=== PATIENT | female | born 1960 | race Caucasian/White ===

== ENCOUNTER 2020-12-31 10:00 | Emergency (ER) | payer OTHER, SELFPAY ==
--- NOTE | ~2020-12-31 | XR_ITS ---
EXAMINATION: XR SHOULDER, RIGHT CLINICAL INFORMATION: Pain COMPARISON: None TECHNIQUE: Three views of the right shoulder. FINDINGS: There is no evidence of acute fracture or dislocation of the right shoulder. There is prominent calcific tendinitis present. Glenohumeral joint space maintained with minimal spurring. Mild spurring about the acromioclavicular joint is noted. No widening of the coracoclavicular space. XR/XR shoulder RT min 2V IMPRESSION: Prominent calcific tendinitis of the right shoulder.
[2020-12-31 10:49] VITALS: BP 136/59; PULSE 75; RESP 16; TEMP 36.7; O2SAT 98; BMI 39.6
--- NOTE | 2020-12-31 10:50 | ED.GENADULT ---
HPI - General Adult General Chief complaint: Extremity Injury, Upper Stated complaint: rt arm pain Time Seen by Provider: 12/31/20 10:47 Source: patient Limitations: no limitations History of Present Illness HPI narrative: Patient presents to the ER with atraumatic right shoulder pain pain increases with range of motion or palpation. Patient denies any injury to that shoulder or similar episodes in the past. Patient describes the pain as achy that increases she raises that shoulder or palpates the lateral aspect of that shoulder. Patient is tearful at this time. Patient has no other complaints at this time. Patient also has some associated nausea with the pain response. Took a Motrin this morning without any relief. Related Data Previous Rx's Medication Instructions Recorded naproxen 500 mg tablet (Naprosyn) 500 mg PO BID PRN #30 tab 12/31/20 tramadol 50 mg tablet 50 mg PO Q8H PRN #14 tab 12/31/20 Allergies Allergy/AdvReac Type Severity Reaction Status Date / Time pentazocine [From Katelin] Allergy Unknown Verified 12/31/20 10:48 Review of Systems Constitutional: Constitutional: Denies chills, Denies fever(s) and Reports headache(s) ENT: Reports headache(s), Denies nasal congestion and Denies sore throat Cardiovascular: Cardiovascular: Denies chest pain and Denies dyspnea Respiratory: Respiratory: Denies cough and Denies dyspnea Gastrointestinal: Gastrointestinal: Reports nausea and Denies vomiting Musculoskeletal: Musculoskeletal: Reports as per HPI, Denies back pain and Reports arthralgias Comments: Diffuse right shoulder pain Integumentary/Breasts: Skin/Breast: Denies change in pigmentation and Denies rash Neurologic: Reports headache(s) and Denies paresthesias Hematologic/Lymphatic: Hematologic/Lymphatic: Denies easy bruising PMFSH Past Medical History Attestation statement: The following information was validated with the patient. Social History Social History Advance Directives: No Advance Directives Information Provided: No Patient : No Physical Exam Vital Signs: Vital Signs: Last Vital Signs Temp 98.0 F 12/31/20 10:49 Pulse 75 12/31/20 10:49 Resp 16 12/31/20 10:49 BP 136/59 L 12/31/20 10:49 Pulse Ox 98 12/31/20 10:49 Body Mass Index 39.6 vital signs have been reviewed as normal and appeared to be correct. Blood pressure normal. Heart rate normal. Respiration rate normal. Temperature normal. Oxygen saturation normal. Appearance: Alert. Oriented X3. No acute distress. Head: Normal external exam. Normocephalic. Atraumatic. Eyes: PERRLA. EOMI. ENT: Pharynx normal. Uvula midline. Moist mucous membranes. Neck: Soft full range of motion, no JVD CVS: Heart regular rate and rhythm no murmurs and rubs Respiratory: Breath sounds are clear to auscultation bilaterally. No accessory muscle use noted. Back: Full range of motion noted. Skin: Skin warm and dry. No ecchymosis noted Extremities: Right shoulder diffusely tenderness decreased range of motion secondary to pain no crepitus. Unable to assess can test. Neuro: Oriented X 3. No motor deficit. No sensory deficit. Reflexes normal. Course Course Course Narrative: Right shoulder calcified tendinitis Right shoulder strain Rotator cuff injury Muscle spasm Symptoms consistent with muscle skeletal pain 1 Percocet p.o. 5 mg Valium p.o. right shoulder x-ray pending. Symptoms shows obvious calcified tendinitis will place patient in sling follow-up with orthopedics. Medical Decision Making Imaging Data shoulder: Radiologist's impression: [address] [address] XRay Report Signed Patient: Carolyn Kan MR#: [id number] : 1960 Acct:[id number] Age/Sex: 60 / F ADM Date: 12/31/20 Loc: .ED Attending Dr: Ordering Physician: Sebastien Arzola Date of Service: 12/31/20 Procedure(s): XR shoulder RT min 2V Accession Number(s): [id number] cc: Sebastien Arzola ~ EXAMINATION: XR SHOULDER, RIGHT CLINICAL INFORMATION: Pain? COMPARISON: None? TECHNIQUE: Three views of the right shoulder. FINDINGS: There is no evidence of acute fracture or dislocation of the right shoulder. There is prominent calcific tendinitis present. Glenohumeral joint space maintained with minimal spurring. Mild spurring about the acromioclavicular joint is noted. No widening of the coracoclavicular space.? XR/XR shoulder RT min 2V IMPRESSION: Prominent calcific tendinitis of the right shoulder. Dictated By: Florencio Hammond MD Signed By: <Electronically signed by Florencio Hammond MD in OV> 12/31/20 1110 DD/ 1050 TD/TT:? Application Programmer Analyst: Discharge Plan Discharge Clinical Impression: Calcifying tendinitis of shoulder, Right shoulder tendinitis Patient Disposition: Home, Self-Care Instructions: Calcific Tendinitis (ED) Additional Instructions: X-ray shows obvious signs of calcified tendinitis Follow-up with orthopedics as needed Rest ice elevation medication as directed Prescriptions: New naproxen [Naprosyn] 500 mg tablet 500 mg PO BID PRN (Reason: pain) Qty: 30 RF: 0 tramadol 50 mg tablet 50 mg PO Q8H PRN (Reason: severe pain (scale score 7-10)) Qty: 14 RF: 0 Referrals: Jay Ortega MD [Physician] - 2 days
[2020-12-31] MEDS: diazePAM 5 MG TABLET PO (11:06)
[2020-12-31] MEDS: oxyCODONE HCl Immed Release 5 MG TABLET PO (11:06)
== END 2020-12-31 11:43 | disposition home or self-care (01) ==
PROVIDERS: Emergency Provider Emergency Medicine; PCP Internal Medicine
DX: M75.31 Calcific tendinitis of right shoulder (principal); M79.601 Pain in right arm
CPT/HCPCS: 73030; 99283

== ENCOUNTER 2021-01-09 13:51 | Outpatient (REF) | payer OTHER, SELFPAY ==
[2021-01-09 15:30] LABS: MANUAL DIFF FLAG NO
[2021-01-09 15:31] LABS: Basophils Percent Auto 0.5 % (0-2); Eosinophils Absolute Auto 0.1 X10*3/uL (0.0-0.4); Eosinophils Percent Auto 1.8 % (0-4); Hematocrit 36.1 % (37-47); Hemoglobin 11.8 g/dl (12.0-16.0); Imm Gran Abs Auto 0.03 X10*3/uL (0.00-0.03); Imm Gran Pct Auto 0.5 % (0.0-0.4); Lymphocytes Absolute Auto 2.9 X10*3/uL (1.2-4.9); Lymphocytes Percent Auto 43.5 % (20-40); Mean Corpuscular HGB Conc 32.7 g/dl (31.0-35.0); Mean Corpuscular Hemoglobin 30.7 pg (27.0-33.0); Mean Platelet Volume 8.9 fL (9.4-12.3); Monocytes Absolute Auto 0.3 X10*3/uL (0.1-1.2); Neutrophils Absolute Auto 3.2 X10*3/uL (2.0-8.3); Neutrophils Percent Auto 48.7 % (45-73); Platelet Count 299 X10*3/uL (160-400); Red Blood Count 3.84 X10*6/uL (4.20-5.50); Red Cell Distribution Width 13.2 % (11.0-16.0); White Blood Count 6.6 X10*3/uL (4.8-10.8)
[2021-01-09 15:44] LABS: Estimated Average Glucose 97 mg/dL
[2021-01-09 15:52] LABS: Alanine Aminotransferase 20 U/L (0-31); Alkaline Phosphatase 48 U/L (39-117); Anion Gap 10 (12-20); Aspartate Amino Transferase 13 U/L (5-31); Bilirubin Total 0.4 mg/dL (0.0-1.0); Blood Urea Nitrogen 23 mg/dL (9-16); Calcium 9.7 mg/dL (8.4-10.2); Carbon Dioxide 28 mmol/L (22-29); Chloride 111 mmol/L (96-108); Cholesterol 169 mg/dL; Estimated Glomerular Filt Rate > 60; Glucose Random 100 mg/dL (60-115); HDL Cholesterol 57 mg/dL; LDL Cholesterol Calculated 101 mg/dl; Potassium 4.8 mmol/L (3.3-5.1); Sodium 144 mmol/L (135-145); Total Protein 6.3 g/dL (6.5-8.0); Triglycerides 58 mg/dL
[2021-01-09 16:11] LABS: TSH reflex Free T4 0.74 uIU/mL (0.32-4.0)
== END 2021-01-09 13:52 | disposition home or self-care (01) ==
LOC: HO.LAB 13:51
PROVIDERS: Absent Provider Internal Medicine; PCP Internal Medicine; Visit Provider Physician Assistant
DX: Z00.01 Encounter for general adult medical examination with abnormal findings (principal); M75.31 Calcific tendinitis of right shoulder
CPT/HCPCS: 20610; 36415; 80053; 80061; 83036; 84443; 85025; J1040

== ENCOUNTER → 2021-02-24 13:14 | Outpatient (BNVA) | payer OTHER, SELFPAY | PROVIDERS: PCP Internal Medicine; Visit Provider Physician Assistant ==

== ENCOUNTER → 2021-04-20 10:56 | Outpatient (BNVA) | payer OTHER, SELFPAY | PROVIDERS: PCP Internal Medicine; Visit Provider Anesthesiology ==

== ENCOUNTER 2022-07-06 09:34 | Emergency (ER) | payer OTHER, SELFPAY ==
--- NOTE | ~2022-07-06 | CT_ITS ---
EXAMINATION: CT ABDOMEN AND PELVIS WITHOUT CONTRAST CLINICAL INFORMATION: Right flank pain COMPARISON: None TECHNIQUE: Multidetector volumetric imaging was performed from the superior aspect of the liver through the pubic symphysis. Sagittal and coronal reformatted images were obtained on the technologist's workstation. This CT examination was performed using dose optimization techniques as appropriate, variously including the following: *Automated exposure control *Adjustment of mA and/or kV according to patient size (this includes techniques or standardized protocols for targeted exams where dose is matched to indication/reason for exam; i.e. extremities or head) *Use of iterative reconstruction technique DLP: 882 mGy-cm FINDINGS: LUNG BASES: Linear right basilar atelectasis. Normal heart size. LIVER, GALLBLADDER, AND BILIARY TREE: The liver is normal in size, shape, and attenuation. Simple cyst noted at the dome of the left lobe of the liver. No solid hepatic lesion or biliary ductal dilatation is present. Stones are seen within the gallbladder lumen. No wall thickening or adjacent inflammation. PANCREAS: Unremarkable. SPLEEN: Unremarkable. ADRENAL GLANDS: Unremarkable. KIDNEYS AND URETERS: The kidneys are normal in size, shape, and attenuation. Duplicated right collecting system. The ureters meet at the level of the mid ureter. Mild right hydroureteronephrosis involving both moieties. There is a distal ureteral calculus which measures 0.4 cm. This is approximately 1 cm proximal to the ureterovesicular junction. No additional calculi. BLADDER: Unremarkable. GASTROINTESTINAL TRACT: Small hiatal hernia. Normal caliber small bowel. No obstruction. No colonic wall thickening or acute inflammation. Scattered diverticulosis without diverticulitis. No free air or free fluid. The appendix is not seen. ABDOMINAL WALL: No significant hernia is appreciated. LYMPH NODES: Normal. VASCULAR: Normal caliber aorta with mild atherosclerotic calcification. PELVIC VISCERA: The uterus and adnexa are unremarkable. OSSEOUS STRUCTURES: No acute or suspicious osseous abnormality. Mild degenerative change throughout the spine and of the hips. CT/CT abdomen pelvis wo IV con IMPRESSION: 1. Mild right hydroureteronephrosis with a 0.4 cm distal ureteral obstructing calculus. Duplicated right collecting system. 2. Cholelithiasis. Fleischner guidelines were followed.
[2022-07-06 10:15] VITALS: BP 141/76; PULSE 55; RESP 16; TEMP 36.1; O2SAT 100; BMI 41.4
--- NOTE | 2022-07-06 10:47 | ED_ITS ---
HPI - Abdominal Pain General Chief Complaint: Back Pain/Injury Stated Complaint: Kidney stone Time Seen by Provider: 07/06/22 10:35 Source: patient Mode of arrival: ambulatory Limitations: no limitations History of Present Illness HPI narrative: 61 yo female with PMH of kidney stones, chronic pain, obesity - has not had a kidney stone in 30+ years presents with R flank pain this AM with n/v. Pain is radiating down and severe. She states it feels like a kidney stone. MD elicited complaint: flank pain Pertinent past history: kidney stones Onset (ago): hour(s) (few) Pain Consistency: constant Location: R flank Severity: severe Quality: stabbing Radiation: RLQ Migration to: no migration Exacerbating factors: nothing Relieving factors: nothing Associated symptoms: nausea and vomiting Related Data Home Medications Medication Instructions Recorded Confirmed meloxicam 15 mg tablet 15 mg PO DAILY 04/20/21 naltrexone 8 mg-bupropion 90 mg 2 tab PO BID 04/20/21 tablet,extended release (Contrave) topiramate 50 mg tablet 50 mg PO BID 04/20/21 Previous Rx's Medication Instructions Recorded naproxen 500 mg tablet (Naprosyn) 500 mg PO BID PRN pain #30 tabs 12/31/20 tramadol 50 mg tablet 50 mg PO Q8H PRN severe pain 12/31/20 (scale score 7-10) #14 tabs morphine 15 mg immediate release 15 mg PO TID PRN pain #12 tabs 07/06/22 tablet ondansetron 4 mg disintegrating 4 mg PO Q8H PRN nausea and 07/06/22 tablet vomiting #20 tabs tamsulosin 0.4 mg capsule 0.4 mg PO DAILY 7 days #7 caps 07/06/22 Allergies Allergy/AdvReac Type Severity Reaction Status Date / Time pentazocine [From Katelin] Allergy Unknown Verified 12/31/20 10:48 Review of Systems Review of Systems Constitutional : No Weight loss, No Fever, No Chills ENT/Mouth : No sore throat, No Rhinorrhea Eyes: No Swelling, No Redness Cardiovascular : No Chest Pain, No SOB, NoEdema Respiratory : No Cough, No Sputum, No Wheezing Gastrointestinal : Positive Nausea, Positive Vomiting, no Diarrhea, positive abdominal Pain, No Hematochezia, No Melena Genitourinary : No Dysuria, No Urinary Frequency, No Hematuria, No Urgency Musculoskeletal : No joint pain, No Myalgias, No Joint Swelling Skin : No Skin Lesions, No rash Neuro : No Weakness, No Numbness, No Dizziness, No Headache Psych : No Anxiety/Panic, No Depression Heme/Lymph: No Bruising, No Lymphadenopathy Endocrine : No Polyuria, No Polydipsia All other systems reviewed and are negative. [facility] Past Medical History Attestation statement: The following information was validated with the patient. Medical History Chronic pain syndrome Facet arthropathy, lumbar Morbid obesity Spondylosis of lumbar spine Social History Social History Alcohol intake: never Patient Tobacco Use Status: Tobacco use Unknown Smoked in Last 30 Days: No Use of substances other than those prescribed or required for medical reasons: Yes Substance Use Type: Marijuana Substance Use Frequency: Weekly Any prior treatment program specific to substance use: No Advance Directives: No Advance Directives Information Provided: Yes Patient : No Physical Exam ED Vital Signs: Vital Signs - 24 hr 07/06/22 10:15 07/06/22 11:02 07/06/22 14:52 Temperature 97 F 98.3 F Pulse Rate 55 50 55 Respiratory Rate 16 18 16 Blood Pressure 141/76 H 134/62 119/55 L Pulse Oximetry 100 100 100 Oxygen Delivery Method Room Air Room Air Room Air BMI result Body Mass Index 41.4 Appearance: Alert. Oriented X3. No acute distress. Eyes: Pupils equal, round and reactive to light. ENT: Pharynx normal. Neck: Normal inspection. Neck supple. CVS: Normal heart rate and rhythm. Pulses normal. Respiratory: No respiratory distress. Breath sounds normal. Abdomen: Soft and nontender. Back: mild R sided CVA ttp Skin: Skin warm and dry. Normal skin color. Normal skin turgor. Extremities: No lower extremity edema. No calf ttp Neuro: Oriented X 3. No motor deficit. No sensory deficit. Course Course Course Narrative: pain well controlled waiting on urine to DC no UTI stable for DC Medical Decision Making Medical Decision Making MDM Narrative: 61 yo female with PMH of kidney stones, chronic pain, obesity here with R flank pain concerning for renal colic - at this time will need labs, UA, IVF, IV toradol and morphine for pain, CT scan for renal colic and UA to evaluate for infection. Dispo per results and findings. Differential Diagnosis Differential Diagnoses: The differential diagnosis associated with the presentation includes UTI, renal colic Lab Data MDM Lab Attestation statement: I reviewed the patient's lab results. 07/06/22 11:02 07/06/22 11:02 Labs: Lab Results 07/06/22 07/06/22 07/06/22 Range/Units 11:02 11:02 14:12 WBC 7.9 (4.8-10.8) X10*3/uL RBC 3.98 L (4.20-5.50) X10*6/uL Hgb 12.1 (12.0-16.0) g/dl Hct 37.3 (37.0-47.0) % MCV 93.7 (80.0-98.0) fL MCH 30.4 (27.0-33.0) pg MCHC 32.4 (31.0-35.0) g/dl RDW 13.7 (11.0-16.0) % Plt Count 249 (160-400) X10*3/uL MPV 8.4 L (9.4-12.3) fL Immature Gran % (Auto) 0.4 (0.0-0.4) % Neut % (Auto) 70.7 (45-73) % Lymph % (Auto) 23.3 (20-40) % [place] % (Auto) 4.4 (2-11) % Eos % (Auto) 0.6 (0-4) % Baso % (Auto) 0.6 (0-2) % Lymph # (Auto) 1.8 (1.2-4.9) X10*3/uL [place] # (Auto) 0.4 (0.1-1.2) X10*3/uL Eos # (Auto) 0.1 (0.0-0.4) X10*3/uL Baso # (Auto) 0.1 (0.0-0.2) X10*3/uL Abs Immat Gran (auto) 0.03 (0.00-0.03) X10*3/uL Absolute Neuts (auto) 5.6 (2.0-8.3) x10*3/uL Absolute Nucleated RBC 0.000 (0.0-0.012) X10*3/uL Nucleated RBC % (auto) 0.0 (0.0-0.2) /100WBC Sodium 142 (135-145) mmol/L Potassium 4.1 (3.3-5.1) mmol/L Chloride 110 H (96-108) mmol/L Carbon Dioxide 24 (22-29) mmol/L Anion Gap 12 (12-20) BUN 16 (9-16) mg/dL Creatinine 0.84 (0.5-1.4) mg/dL Estim Creat Clear Calc 82.0 Estimated GFR > 60 Random Glucose 101 (60-115) mg/dL Calcium 8.7 D (8.4-10.2) mg/dL Urine Color Yellow Urine Appearance Clear Urine pH 6.5 (5.0-9.0) Ur Specific [place] 1.010 (1.005-1.025) Urine Protein Negative (Neg-Trace) mg/dL Urine Glucose (UA) Negative (Negative) mg/dL Urine Ketones Trace (Negative) mg/dL Urine Blood Moderate (2+) H (Negative) Urine Nitrite Negative (Negative) Ur Leukocyte Esterase Negative (Negative) Urine RBC 11-20 H (0-2) /HPF Urine WBC 0-5 (0-5) /HPF Ur Squamous Epith Cells 3-5 (0-2) /HPF Urine Bacteria None Seen (None Seen) Hyaline Casts 0-2 (0-2) /LPF Independent Interpretation I performed an independent interpretation of an: CT Scan Radiology Impression Discussion of test interpretation with radiology: I have reviewed the radiologist's reading. External Record Review External record reviewed: Inpatient record and Outpatient record Prescription Management I considered prescription management with: Pain Medication and Other Medications Administered Discontinued Medications Generic Name Dose Route Start Last Admin Trade Name Freq PRN Reason Stop Dose Admin Lactated Ringer's 1,000 mls @ 999 mls/hr 07/06/22 11:00 07/06/22 13:13 Lr IV 07/06/22 12:00 Infused .Q1H1M ABENA Infusion Ketorolac Tromethamine 15 mg 07/06/22 10:56 07/06/22 11:12 Ketorolac Tromethamine 15 Mg/Ml Vial IVPUSH 07/06/22 10:57 15 mg ONCE ONE Administration Ondansetron HCl 4 mg 07/06/22 10:56 07/06/22 11:12 Ondansetron Hcl 4 Mg/2 Ml Vial IVPUSH 07/06/22 10:57 4 mg ONCE ONE Administration Tamsulosin HCl 0.4 mg 07/06/22 11:49 07/06/22 12:08 Tamsulosin Hcl 0.4 Mg Capsule PO 07/06/22 11:50 0.4 mg ONCE ONE Administration Discharge Plan Discharge Clinical Impression: Ureterolithiasis Patient Disposition: Home, Self-Care Instructions: Ureteral Stones (ED) Additional Instructions: return to ED for any worsening symptoms or concerns return for worsening pain, fevers, vomiting, inability to control pain at home or any other concerns if you feel you haven't passed the stone in the next 2 days call urology hold your naltrexone if you take the morphine for pain Prescriptions: New tamsulosin 0.4 mg capsule 0.4 mg PO DAILY 7 Days Qty: 7 0RF morphine 15 mg tablet 15 mg PO TID PRN (Reason: pain) Qty: 12 0RF Rx Instructions: partial fill okay; Partial Fill upon patient request. ondansetron 4 mg tablet,disintegrating 4 mg PO Q8H PRN (Reason: nausea and vomiting) Qty: 20 0RF No Action naproxen [Naprosyn] 500 mg tablet 500 mg PO BID PRN (Reason: pain) Qty: 30 0RF tramadol 50 mg tablet 50 mg PO Q8H PRN (Reason: severe pain (scale score 7-10)) Qty: 14 0RF meloxicam 15 mg tablet 15 mg PO DAILY topiramate 50 mg tablet 50 mg PO BID Contrave 8-90 mg tablet extended release 2 tab PO BID Referrals: Nasima Arango MD [Physician] - 2 days Stand Alone Forms: Work/School Release Interventions: ED Discharge Assessment Last Done: 07/06/22 14:53 Discharge Date/Time: 07/06/22 14:55
[2022-07-06 11:02] VITALS: BP 134/62; PULSE 50; RESP 18; TEMP 36.8; O2SAT 100
[2022-07-06 11:07] LABS: MANUAL DIFF FLAG NO
[2022-07-06] MEDS: Lactated Ringers 1,000 ML 999 ML IV (11:11)
[2022-07-06 11:12] LABS: Basophils Absolute Auto 0.1 X10*3/uL (0.0-0.2); Basophils Percent Auto 0.6 % (0-2); Eosinophils Absolute Auto 0.1 X10*3/uL (0.0-0.4); Eosinophils Percent Auto 0.6 % (0-4); Hematocrit 37.3 % (37.0-47.0); Hemoglobin 12.1 g/dl (12.0-16.0); Imm Gran Abs Auto 0.03 X10*3/uL (0.00-0.03); Imm Gran Pct Auto 0.4 % (0.0-0.4); Lymphocytes Absolute Auto 1.8 X10*3/uL (1.2-4.9); Lymphocytes Percent Auto 23.3 % (20-40); Mean Corpuscular HGB Conc 32.4 g/dl (31.0-35.0); Mean Corpuscular Hemoglobin 30.4 pg (27.0-33.0); Mean Corpuscular Volume 93.7 fL (80.0-98.0); Mean Platelet Volume 8.4 fL (9.4-12.3); Monocytes Absolute Auto 0.4 X10*3/uL (0.1-1.2); Monocytes Percent Auto 4.4 % (2-11); Neutrophils Absolute Auto 5.6 x10*3/uL (2.0-8.3); Neutrophils Percent Auto 70.7 % (45-73); Platelet Count 249 X10*3/uL (160-400); Red Blood Count 3.98 X10*6/uL (4.20-5.50); Red Cell Distribution Width 13.7 % (11.0-16.0); White Blood Count 7.9 X10*3/uL (4.8-10.8)
[2022-07-06] MEDS: Ketorolac Tromethamine 15 MG/ML VIAL IVPUSH (11:12)
[2022-07-06] MEDS: ondansetron HCL 4 MG/2 ML VIAL IVPUSH (11:12)
[2022-07-06 11:21] LABS: Anion Gap 12 (12-20); Blood Urea Nitrogen 16 mg/dL (9-16); Calcium 8.7 mg/dL (8.4-10.2); Carbon Dioxide 24 mmol/L (22-29); Chloride 110 mmol/L (96-108); Estimated Glomerular Filt Rate > 60; Glucose Random 101 mg/dL (60-115); Potassium 4.1 mmol/L (3.3-5.1); Sodium 142 mmol/L (135-145)
[2022-07-06] MEDS: Tamsulosin HCL 0.4 MG CAPSULE PO (12:08)
[2022-07-06 14:21] LABS: Appearance Urine Clear; Color Urine Yellow; Glucose Urine UA Negative (Negative); Leukocyte Esterase Urine Negative (Negative); Nitrite Urine Negative (Negative); PH 6.5 (5.0-9.0); UMIC TRIGGER UACC YES; Urine Blood Moderate (2+) (Negative); Urine Ketones Trace mg/dL (Negative); Urine Protein Negative (Neg-Trace)
[2022-07-06 14:23] LABS: Bacteria Urine None Seen (None Seen); Hyaline Casts Urine 0-2 /LPF (0-2); WBC Urine 0-5 /HPF (0-5)
[2022-07-06 14:52] VITALS: BP 119/55; PULSE 55; RESP 16; O2SAT 100
== END 2022-07-06 14:55 | disposition home or self-care (01) ==
PROVIDERS: Emergency Provider Emergency Medicine; PCP Internal Medicine
DX: N20.1 Calculus of ureter (principal); R10.31 Right lower quadrant pain; Z79.899 Other long term (current) drug therapy
CPT/HCPCS: 36415; 74176; 80048; 81001; 85025; 96361; 96374; 96375; 99284; 99285; J1885; J2405

== ENCOUNTER → 2022-07-16 08:34 | Outpatient (BNVA) | payer OTHER, SELFPAY | PROVIDERS: PCP Internal Medicine; Visit Provider Urology | DX: Z13.89 Encounter for screening for other disorder (principal) ==

== ENCOUNTER 2022-07-20 10:54 | Day surgery (SDC) | payer OTHER, SELFPAY ==
--- NOTE | 2022-07-19 12:11 | HO.ANESPROP2 ---
Documented by User: Rachel Baumann NP 07/19/22 12:12 HPI - Anesthesia Eval Consult details Narrative: 61yo F for Right Cystoscopy, Ureteroroscopy, Retro, Laser,possible stent PMFSH Active Problems Active Problems: All Active Problems (Updated 07/16/22 @ 09:11 by Andi Elizabeth) Flank pain (Acute) Ureteral stone with hydronephrosis (Acute) Chronic pain syndrome (Acute) Facet arthropathy, lumbar (Acute) Spondylosis of lumbar spine (Acute) Morbid obesity (Acute) Calcific tendinitis of right shoulder (Acute) Past Medical History Medical History Chronic pain syndrome Depression Facet arthropathy, lumbar Kidney stones Morbid obesity Spondylosis of lumbar spine Surgical History Surgical History History of appendectomy History of lithotripsy Social History Social History (Updated 07/20/22 @ 12:17 by Lisbeth Johnson MD) Alcohol intake: never Patient Tobacco Use Status: Former Tobacco user Quit Date: 39 yrs ago Use of substances other than those prescribed or required for medical reasons: Yes Substance Use Type: Marijuana Substance Use Frequency: Occasionally Last Used Substance: Unknown Are you DNR?: No Advance Directives: No Advance Directives Information Provided: Yes Meds Allergies Allergy/AdvReac Type Severity Reaction Status Date / Time pentazocine [From Katelin] Allergy Unknown Verified 07/20/22 11:32 Home Medications Medication Instructions Recorded Confirmed Last Taken Type duloxetine 20 mg capsule,delayed 20 mg PO DAILY 07/14/22 07/20/22 Unknown History release Exam Exam Date and Time: July 19, 2022 1211 Pertinent Lab Results Pertinent Lab Results: Laboratory Tests 07/06/22 07/06/22 11:02 11:02 WBC 7.9 Hgb 12.1 Hct 37.3 Plt Count 249 Sodium 142 Potassium 4.1 Chloride 110 H Carbon Dioxide 24 BUN 16 Creatinine 0.84 Assessment and Plan Assessment Anesthesia Assessment: Chart Reviewed Documented by User: Lisbeth Johnson MD 07/20/22 12:20 HPI - Anesthesia Eval Consult details Narrative: 61yo F for Cystoscopy,Right Ureteroroscopy, Retro, Laser,possible stent PMFSH Active Problems Active Problems: All Active Problems (Updated 07/16/22 @ 09:11 by Andi Elizabeth) Flank pain (Acute) Ureteral stone with hydronephrosis (Acute) Chronic pain syndrome (Acute) Facet arthropathy, lumbar (Acute) Spondylosis of lumbar spine (Acute) Morbid obesity (Acute) BMI 41.5 Calcific tendinitis of right shoulder (Acute) Past Medical History Medical History Chronic pain syndrome Depression Facet arthropathy, lumbar Kidney stones Morbid obesity Spondylosis of lumbar spine Family History Family history of problems with anesthesia: No Surgical History Surgical History History of appendectomy History of lithotripsy History of Problems with Anesthesia: No Social History Social History (Updated 07/20/22 @ 12:17 by Lisbeth Johnson MD) Alcohol intake: never Patient Tobacco Use Status: Former Tobacco user Quit Date: 39 yrs ago Use of substances other than those prescribed or required for medical reasons: Yes Substance Use Type: Marijuana Substance Use Frequency: Occasionally Last Used Substance: Unknown Are you DNR?: No Advance Directives: No Advance Directives Information Provided: Yes Meds Allergies Allergy/AdvReac Type Severity Reaction Status Date / Time pentazocine [From Talwin] Allergy Unknown Verified 07/20/22 11:32 Home Medications Medication Instructions Recorded Confirmed Last Taken Type duloxetine 20 mg capsule,delayed 20 mg PO DAILY 07/14/22 07/20/22 Unknown History release Exam Height,Weight and Vital Signs: Height 5 ft 3 in Weight 106.141 kg Vital Signs Temp Pulse Resp BP Pulse Ox O2 Del Method 07/20/22 11:46 98.7 F 60 16 108/62 99 Room Air Airway Mallampati Class: II TM Dist: >3cm Neck ROM: Full Loose/Missing/Broken Teeth: Yes (Some missing, some broken (fillings fell out)) Heart: RRR Lungs: CTAB Assessment and Plan Assessment Anesthesia Assessment: Anesthesia Plan Discussed Final Anesthetic Review Family History of Problems with Anesthesia: No History of Problems with Anesthesia: No NPO: Yes ASA Class: III Final Preanesthetic Review: No Changes in Pt Med Stat, Meds/Allgs Chart Reviewed, Consent Obtained/Reviewed and Anes Risks/Benef Reviewed Patient Risk: Intermediate Procedure Risk: Low Assessment/Block/Sedation in SS: Assess/Block/Sedation-SS Anesthetic Plan Anesthetic Plan: GA Disposition: Standard PACU
[2022-07-20] VITALS (7 sets, daily range): BP systolic 108–147; BP diastolic 58–77; PULSE 50–71; RESP 16–20; TEMP 36.3–37.1; O2SAT 98–100; BMI 41.4
--- NOTE | ~2022-07-20 | FL_ITS ---
EXAMINATION: XR FLUOROSCOPY WITH IMAGES CLINICAL INFORMATION: Mild right hydronephrosis, small distal right ureteral calculus. COMPARISON: CT abdomen and pelvis 07/06/2022 TECHNIQUE: Fluoroscopy Supervised By: Dr. Arango. Fluoroscopy Time: 35 seconds. Cumulative Dose: 13.75 mGy. Images: 5. FINDINGS: Right ureteral stent is in position. Small calculus noted on CT not clearly seen on fluoroscopic spot views. There are some surgical clips again noted overlying right mid abdomen. Degenerative changes lumbar spine. FL/FL guidance in OR IMPRESSION: Fluoroscopy for urologic procedures.
[2022-07-20] MEDS: Lactated Ringers 1,000 ML 100 ML IVCONT (11:56)
--- NOTE | 2022-07-20 12:49 | MHC.SHP ---
Pre-Procedural Eval Section A Date of Service: 07/20/22 The patient is an INPATIENT: No The History & Physical has been completed within 30 days and I have reviewed it.: Yes Section B Chief Complaint: Calculus of ureter, right Allergies: Allergies Allergy/AdvReac Type Severity Reaction Status Date / Time pentazocine [From Talwin] Allergy Unknown Verified 07/20/22 11:32 Plan Diagnosis/Plan: Unchanged I have reviewed the history and physical and performed a pertinent physical examination on my patient. No changes have occurred unless specified. Plan for Cystoscopy, right ureteroscopy, possible laser lithotripsy, possible ureteral stent. Risks discussed included but not limited to, possible need to repeat procedure if stone is not completely fragmented, Irritative voiding symptoms, bladder spasms, urgency, blood in urine. Time Spent With Patient Time: Total time managing care of this patient today ____ minutes.
--- NOTE | 2022-07-20 14:12 | P.OP_ITS ---
Operative Note Operative Note Date of Service: 07/20/22 Narrative: PreOperative Diagnosis:?? Right ureteral stone, right hydronephrosis, right partially duplicated system Post Operative Diagnosis:?? Right ureteral stone, right hydronephrosis, right partially duplicated system Procedure: - Cystoscopy, right retrograde, right ureteroscopy stent insertion, 6 [place] by 24 cm Findings: Partial duplicated right urinary system. Right hydroureter , No stone visualized Surgeon:?Dr Nasima Arango Anesthesia:? General Indications for procedure: 61 yo female with PMH of kidney stones, chronic pain, obesity - presented with R flank pain Pain was radiating toward bladder. She states it feels like a kidney stone. CTAP-07/06/22- Pertinent findings: Duplicated right collecting system. The ureters meet at the level of the mid ureter. Mild right hydroureteronephrosis involving both moieties. There is a distal ureteral calculus which measures 0.4 cm. This is approximately 1 cm proximal to the ureterovesicular junction. No additional calculi. Procedure: After informed consent was verified the patient was brought to the operating placed on the OR table in supine position.? General Anesthesia was administered per protocol.? The patient was placed in lithotomy position, prepped and draped in the usual sterile fashion.? Safety pause time-out and side of surgery confirmed.? Antibiotics confirmed. 2% lidocaine jelly 10 mL was passed transurethrally. A 22 [place] cystoscope was inserted transurethrally, The bladder was visualized.? Both ureteric orifices were in normal position. An open-ended ureteral catheter was passed into the right ureteral orifice and a retrograde examination was performed. There was dilatation of the proximal ureter. A guidewire was passed through the ureteral catheter into the kidney. The balloon dilator size 12 fr 5 4 cm was passed over the guide -wire the balloon was inflated to it 8 mmHg and the intramural ureter was dilated for 45 seconds. The balloon was deflated. The balloon dilator was removed. The cystoscope was removed, leaving the guidewire in place. The semi rigid ureteroscope was passed over the guidewire. A stone was not visualized. At the mid ureter there was the visualized the duplicated ureter 1 going to the lower pole and 1 ureter going to the upper pole, the ureteral scope was passed into each ureter. The rigid ureteroscope was removed. The flexible ureteroscope was then used and the upper pole renal calices were visualized there were some blood clots noted. There is no stone visualized. Leaving the guidewire in place the flexible ureteroscope was removed. The cystoscope was passed over the safety guidewire. A? 6 [place] by 24 cm stent was placed into the ureter and upper pole moiety under a combination of fluoroscopy and direct visualization. The bladder was emptied.? The rigid cystoscope was removed. ? The patient tolerated the procedure well and was brought to the recovery room in stable condition. Complications: None Drains: Ureteral stent as dictated above
[2022-07-20] MEDS: Ketorolac Tromethamine 30 MG/ML VIAL 15 MG IVPUSH (14:48)
== END 2022-07-20 15:50 | disposition home or self-care (01) ==
PROVIDERS: PCP Internal Medicine; Visit Provider Urology
PROC: (CPT 52351; principal; 2022-07-20 12:50)
DX: N13.2 Hydronephrosis with renal and ureteral calculous obstruction (principal); R10.9 Unspecified abdominal pain; Z87.442 Personal history of urinary calculi; Q62.5 Duplication of ureter; G89.4 Chronic pain syndrome; N28.82 Megaloureter; K76.89 Other specified diseases of liver; Z79.1 Long term (current) use of non-steroidal anti-inflammatories (NSAID); Z79.899 Other long term (current) drug therapy; Z88.8 Allergy status to other drugs, medicaments and biological substances; Z87.891 Personal history of nicotine dependence; F12.90 Cannabis use, unspecified, uncomplicated
CPT/HCPCS: 52351; 52332; C1726; C1769; C2617; J0690; J1100; J1885; J2250; J2405; J3010

== ENCOUNTER → 2022-07-26 10:18 | Outpatient (BNVA) | payer OTHER, SELFPAY | PROVIDERS: PCP Internal Medicine; Visit Provider Urology | DX: N13.2 Hydronephrosis with renal and ureteral calculous obstruction (principal); R10.9 Unspecified abdominal pain; Q62.5 Duplication of ureter; Z87.442 Personal history of urinary calculi | CPT/HCPCS: 52310 ==

== ENCOUNTER 2022-07-26 16:40 | Emergency (ER) | payer OTHER, SELFPAY ==
--- NOTE | ~2022-07-26 | CT_ITS ---
EXAMINATION: CT ABDOMEN AND PELVIS WITHOUT CONTRAST CLINICAL INFORMATION: Obstructing kidney stones. Abdominal pain. COMPARISON: CT abdomen pelvis 07/06/2022 TECHNIQUE: Multidetector volumetric imaging was performed from the superior aspect of the liver through the pubic symphysis. Sagittal and coronal reformatted images were obtained on the technologist's workstation. This CT examination was performed using dose optimization techniques as appropriate, variously including the following: *Automated exposure control *Adjustment of mA and/or kV according to patient size (this includes techniques or standardized protocols for targeted exams where dose is matched to indication/reason for exam; i.e. extremities or head) *Use of iterative reconstruction technique DLP: 829 mGy-cm FINDINGS: LUNG BASES: Lingular atelectasis and right lower lobe atelectasis present LIVER, GALLBLADDER, AND BILIARY TREE: The liver is normal in size, shape, and attenuation. 1 cm benign simple cyst is present in the left lobe of the liver. No worrisome solid focal hepatic lesion or biliary ductal dilatation is present. The gallbladder contains layering calcified gallstones the largest measuring 1.5 cm with no evidence of pericholecystic inflammatory changes. PANCREAS: Unremarkable. SPLEEN: Unremarkable. ADRENAL GLANDS: Unremarkable. KIDNEYS AND URETERS: The previously seen distal right obstructing calculus is no longer seen but the degree of hydronephrosis and dilatation of the ureter on the right has increased since the prior study. The ureter is dilated all the way down the bladder. No calculi, however are seen overlying the course of the ureter or bladder. The left kidney is normal BLADDER: Bladder is symmetrically thickened with air within the bladder lumen. No bladder calculi are seen. GASTROINTESTINAL TRACT: The small and large bowel are unremarkable. The appendix is unremarkable. ABDOMINAL WALL: No significant hernia is appreciated. LYMPH NODES: Normal. VASCULAR: Unremarkable. PELVIC VISCERA: The uterus and adnexa are unremarkable. OSSEOUS STRUCTURES: There is a mild scoliosis with degenerative changes in the spine. There is grade 1 retrolisthesis of L2 upon L3. CT/CT abdomen pelvis wo IV con IMPRESSION: 1. The previously seen obstructing distal right ureteral calculus is no longer present but there is increased right-sided hydronephrosis and dilatation of the ureter all the way down to the bladder. No calculi are seen along the course of the ureter or within the bladder, which is thick-walled and contains air. 2. Incidental note made of cholelithiasis, benign hepatic cyst and degenerative changes in the spine with grade 1 retrolisthesis of L2 upon L3. Fleischner guidelines were followed.
[2022-07-26 16:52] VITALS: BP 126/90; PULSE 50; RESP 18; TEMP 37.1; O2SAT 98; BMI 41.4
--- NOTE | 2022-07-26 16:55 | ED_ITS ---
HPI - Female Genitourinary General Chief complaint: Urogenital-Female <NATALIO Blue - Last Filed: 08/08/22 11:54> Stated complaint: unable to urinate,pain,stent removal today <NATALIO Blue - Last Filed: 08/08/22 11:54> Time Seen by Provider: 07/26/22 17:54 <NATALIO Blue - Last Filed: 08/08/22 11:54> Source: patient <NATALIO Kahn Last Filed: 07/26/22 21:23> Mode of arrival: ambulatory <NATALIO Kahn Last Filed: 07/26/22 21:23> Limitations: no limitations <NATALIO Kahn Last Filed: 07/26/22 21:23> History of Present Illness HPI Narrative: This is a 61-year-old female history of obesity, ureteral stone w/ hydronephrosis s/p stent which was taken out this AM by presenting to the emergency department complaints of diffuse abdominal pain, inability to void, right-sided flank pain, nausea, dysuria, urinary frequency, urgency, fatigue, malaise, myalgias, subjective fevers and chills. Patient states she h as been very uncomfortable since this time the stent got taken out. Denies chest pain, shortness of breath, headache, vision changes, dizziness. <NATALIO Kahn Last Filed: 07/26/22 21:23> Related Data Home medications: Home Medications Medication Instructions Recorded Confirmed duloxetine 20 mg capsule,delayed 20 mg PO DAILY 07/14/22 07/20/22 release Previous Rx's Medication Instructions Recorded ketorolac 10 mg tablet 10 mg PO TID PRN pain 5 days #15 07/26/22 tabs levofloxacin 500 mg tablet 500 mg PO DAILY 7 days #7 tabs 07/26/22 morphine 15 mg immediate release 15 mg PO Q6H PRN pain 5 days #10 07/26/22 tablet tabs <NATALIO Blue Last Filed: 08/08/22 11:54> Allergies/Adverse reactions: Allergies Allergy/AdvReac Type Severity Reaction Status Date / Time pentazocine [From Katelin] Allergy Unknown Verified 07/26/22 10:23 <NATALIO Blue - Last Filed: 08/08/22 11:54> Review of Systems Review of Systems: Constitutional : No Weight loss, + Fever, + Chills, + Fatigue, + Malaise ENT/Mouth : No sore throat, No Rhinorrhea Eyes: No Eye Pain, No Swelling, No Redness Cardiovascular : No Chest Pain, No SOB, No Dyspnea on Exertion, No Orthopnea, No Edema, No Palpitations Respiratory : No Cough, No Sputum, No Wheezing Gastrointestinal : No Nausea, No Vomiting, No Diarrhea, No Constipation, No abdominal Pain, No Hematochezia, No Melena Genitourinary : + Dysuria, + Urinary Frequency, No Hematuria, Musculoskeletal : No joint pain, + Myalgias, No Joint Swelling Skin : No Skin Lesions, No rash Neuro : No Weakness, No Numbness, No Dizziness, No Headache Psych : No Anxiety/Panic, No Depression All other systems reviewed and are negative <NATALIO Kahn - Last Filed: 07/26/22 21:23> Yes all other systems are reviewed and are negative <NATALIO Kahn - Last Filed: 07/26/22 21:23> [facility] Past Medical History Attestation statement: The following information was validated with the patient. <NATALIO Kahn - Last Filed: 07/26/22 21:23> Source: old records reviewed and nursing notes reviewed <NATALIO Kahn - Last Filed: 07/26/22 21:23> Medical History: Medical History Chronic pain syndrome Depression Facet arthropathy, lumbar Kidney stones Morbid obesity Spondylosis of lumbar spine <NATALIO Blue - Last Filed: 08/08/22 11:54> Surgical History: Surgical History History of appendectomy History of lithotripsy <NATALIO Blue - Last Filed: 08/08/22 11:54> Social History Social History: Social History Alcohol intake: never Patient Tobacco Use Status: Former Tobacco user Quit Date: 39 yrs ago Smoked in Last 30 Days: No Use of substances other than those prescribed or required for medical reasons: No Substance Use Type: Marijuana Any prior treatment program specific to substance use: No Advance Directives: No Advance Directives Information Provided: No Patient : No <NATALIO Blue - Last Filed: 08/08/22 11:54> Physical Exam Vital Signs: Vital Signs: Last Vital Signs Temp 97.5 F 07/26/22 20:54 Pulse 57 07/26/22 20:54 Resp 16 07/26/22 20:54 BP 105/42 L 07/26/22 20:54 Pulse Ox 99 07/26/22 20:54 O2 Del Method Room Air 07/26/22 18:00 BMI result Body Mass Index 41.4 <NATALIO Blue - Last Filed: 08/08/22 11:54> Vital Signs: Last Vital Signs Temp 97.5 F 07/26/22 20:54 Pulse 57 07/26/22 20:54 Resp 16 07/26/22 20:54 BP 105/42 L 07/26/22 20:54 Pulse Ox 99 07/26/22 20:54 O2 Del Method Room Air 07/26/22 18:00 BMI result Body Mass Index 41.4 Vital signs stable <NATALIO Kahn - Last Filed: 07/26/22 21:23> Appearance: Alert.? Oriented X3.? No acute distress.? Head: Normocephalic, atraumatic, no step-offs or deformities Eyes: Pupils equal, round and reactive to light.? Neck: Normal inspection.? Neck supple.? CVS: Normal heart rate and rhythm.? Pulses normal.? Respiratory: No respiratory distress.? Breath sounds normal.? Abdomen: Soft and nontender.? Skin: Skin warm and dry.? Normal skin color.? Normal skin turgor.? Extremities: No lower extremity edema.? No calf ttp. 5/5 strength to bilateral upper and lower extremities Neuro: Oriented X 3.? No motor deficit.? No sensory deficit. CN 2-12 intact <NATALIO Kahn - Last Filed: 07/26/22 21:23> Course Course Course Narrative: RME: 61 yold female presents to the ED for inability to Urinate since her stent was removed this morning at Urology office. Bladder Scan POC ordered. Bladder Scan only has 36ml in bladder. Will do labs and repeat imaging to evlauate for worsening kidney stones. will do labs to check kidney function. alise also states consipation will check for SBO <NATALIO Blue - Last Filed: 08/08/22 11:54> Reevaluation(s) Reevaluation #1: CBC with no acute findings. Chemistry unremarkable. Negative lactic acid. UA with infection positive nitrates however patient is on Pyridium which could cause positive nitrates however patient is having UTI symptoms will treat with ceftriaxone for UTI. CT of the abdomen and pelvis unable to visualize the previously seen obstructing distal right ureteral stone however there is increasing right-sided hydronephrosis and dilation of the ureteral all the way down to the bladder. A gave patient pain medicine, ceftriaxone. Call out to urology. Spoke to Dr. Becerra. Likely edema from stent removal. Recommends tordol and Dilaudid. She would like the patient monitored over night if still in pain and possible obs admit. If pain is improved she can be DC home with pain meds and PO todol. If patient's pain improves she can be discharged on Levaquin 500 mg p.o. daily x7 days per Urology. <NATALIO Khan - Last Filed: 07/26/22 21:23> Time: 20:01 <NATALIO Kahn - Last Filed: 07/26/22 21:23> Reevaluation #2: Patient feeling much better at this time. She will be discharged home with Levaquin and pain medicine. Will have her follow-up with Urology. Educated patient on diagnosis and treatment plan, answered all question, patient verbalizes understanding. At this time patient will be discharged home, advised to return with new or worsening symptoms. Educated on worrisome signs and symptoms and when to return. At this time I feel comfortable discharge home. <NATALIO Kahn - Last Filed: 07/26/22 21:23> Time: 21:18 <NATALIO Kahn - Last Filed: 07/26/22 21:23> Medications Administered Discontinued Medications Generic Name Dose Route Start Last Admin Trade Name Freq PRN Reason Stop Dose Admin Ceftriaxone Sodium 1 gm/ 50 mls @ 100 mls/hr 07/26/22 18:12 07/26/22 19:44 Sodium Chloride IV 07/26/22 18:41 Infused ONCE ONE Infusion Sodium Chloride 1,000 mls @ 999 mls/hr 07/26/22 20:00 07/26/22 21:45 Ns IV 07/26/22 21:00 Infused .Q1H1M ABENA Infusion Sodium Chloride 1,000 mls @ 999 mls/hr 07/26/22 20:00 07/26/22 21:46 Ns IV 07/26/22 21:00 Not Given .Q1H1M ABENA Ketorolac Tromethamine 30 mg 07/26/22 19:54 07/26/22 20:28 Ketorolac Tromethamine 15 Mg/Ml Vial IM 07/26/22 19:55 30 mg ONCE ONE Administration Morphine Sulfate 4 mg 07/26/22 19:04 07/26/22 19:14 Morphine Sulfate 4 Mg/Ml Cartridge IVPUSH 07/26/22 19:05 4 mg ONCE ONE Administration Protocol <NATALIO Blue - Last Filed: 08/08/22 11:54> Medications Administered Discontinued Medications Generic Name Dose Route Start Last Admin Trade Name Juju PRN Reason Stop Dose Admin Ceftriaxone Sodium 1 gm/ 50 mls @ 100 mls/hr 07/26/22 18:12 07/26/22 19:44 Sodium Chloride IV 07/26/22 18:41 Infused ONCE ONE Infusion Sodium Chloride 1,000 mls @ 999 mls/hr 07/26/22 20:00 07/26/22 21:45 Ns IV 07/26/22 21:00 Infused .Q1H1M ABENA Infusion Sodium Chloride 1,000 mls @ 999 mls/hr 07/26/22 20:00 07/26/22 21:46 Ns IV 07/26/22 21:00 Not Given .Q1H1M ABENA Ketorolac Tromethamine 30 mg 07/26/22 19:54 07/26/22 20:28 Ketorolac Tromethamine 15 Mg/Ml Vial IM 07/26/22 19:55 30 mg ONCE ONE Administration Morphine Sulfate 4 mg 07/26/22 19:04 07/26/22 19:14 Morphine Sulfate 4 Mg/Ml Cartridge IVPUSH 07/26/22 19:05 4 mg ONCE ONE Administration Protocol <NATALIO Kahn - Last Filed: 07/26/22 21:23> Medical Decision Making Medical Decision Making [facility] Narrative: 1840 61 yo female presents w/ diffuse abdominal pain, right-sided flank pain, inability to void, nausea, dysuria, urinary frequency, urgency, fatigue, malaise, myalgias, subjective fevers and chills x1 day. Patient reports she had a stent removed today by Dr. Becerra. PE- w/ R sided CVA tenderness and diffuse abd tenderness. Concerns for possible UTI versus pyelonephritis versus kidney stone. Unlikely acute abdomen. Will rule out electrolyte abnormalities. Other differentials include cystitis, postprocedural pain Plan labs, blood cultures, urine, CT of the abdomen pelvis, bladder scan. <NATALIO Kahn - Last Filed: 07/26/22 21:23> Differential Diagnosis Differential Diagnoses: The differential diagnosis associated with the presentation includes <NATALIO Kahn - Last Filed: 07/26/22 21:23> Concerns for possible UTI versus pyelonephritis versus kidney stone. Unlikely acute abdomen. Will rule out electrolyte abnormalities. Other differentials include cystitis, postprocedural pain <NATALIO Kahn - Last Filed: 07/26/22 21:23> Admission/Observation Consideration of admission/observation: Escalation of care including admission/observation considered <NATALIO Kahn - Last Filed: 07/26/22 21:23> Consult Healthcare Provider Management of the patient was discussed with: [employer] <NATALIO Kahn - Last Filed: 07/26/22 21:23> Lab Data [facility] Lab Attestation statement: I reviewed the patient's lab results. <NATALIO Kahn - Last Filed: 07/26/22 21:23> Result Diagrams: 07/26/22 17:33 07/26/22 17:33 <NATALIO Blue - Last Filed: 08/08/22 11:54> Labs: Lab Results 07/26/22 07/26/22 07/26/22 Range/Units 17:33 17:33 17:33 WBC 8.4 (4.8-10.8) X10*3/uL RBC 4.05 L (4.20-5.50) X10*6/uL Hgb 12.3 (12.0-16.0) g/dl Hct 37.7 (37.0-47.0) % MCV 93.1 (80.0-98.0) fL MCH 30.4 (27.0-33.0) pg MCHC 32.6 (31.0-35.0) g/dl RDW 13.7 (11.0-16.0) % Plt Count 308 (160-400) X10*3/uL MPV 8.8 L (9.4-12.3) fL Immature Gran % (Auto) 0.2 (0.0-0.4) % Neut % (Auto) 64.3 (45-73) % Lymph % (Auto) 27.6 (20-40) % [place] % (Auto) 4.8 (2-11) % Eos % (Auto) 2.6 (0-4) % Baso % (Auto) 0.5 (0-2) % Lymph # (Auto) 2.3 (1.2-4.9) X10*3/uL [place] # (Auto) 0.4 (0.1-1.2) X10*3/uL Eos # (Auto) 0.2 (0.0-0.4) X10*3/uL Baso # (Auto) 0.0 (0.0-0.2) X10*3/uL Abs Immat Gran (auto) 0.02 (0.00-0.03) X10*3/uL Absolute Neuts (auto) 5.4 (2.0-8.3) x10*3/uL Absolute Nucleated RBC 0.000 (0.0-0.012) X10*3/uL Nucleated RBC % (auto) 0.0 (0.0-0.2) /100WBC Sodium 141 (135-145) mmol/L Potassium 4.2 (3.3-5.1) mmol/L Chloride 111 H (96-108) mmol/L Carbon Dioxide 22 (22-29) mmol/L Anion Gap 12 (12-20) BUN 24 H (9-16) mg/dL Creatinine 1.12 (0.5-1.4) mg/dL Estim Creat Clear Calc 61.5 Estimated GFR 49 Random Glucose 98 (60-115) mg/dL Lactic Acid (0.5-2.0) mmol/L Calcium 9.1 (8.4-10.2) mg/dL Total Bilirubin 1.0 (0.0-1.0) mg/dL AST 12 (5-31) U/L ALT 10 (0-31) U/L Alkaline Phosphatase 48 (39-117) U/L Total Protein 6.2 L (6.5-8.0) g/dL Albumin 3.8 (3.5-5.0) g/dL Urine Color Other A Urine Appearance Cloudy Urine pH 6.5 (5.0-9.0) Ur Specific [place] 1.025 (1.005-1.025) Urine Protein 300 (3+) H (Neg-Trace) mg/dL Urine Glucose (UA) 250 H (Negative) mg/dL Urine Ketones Trace (Negative) mg/dL Urine Blood Large (3+) H (Negative) Urine Nitrite Positive H (Negative) Ur Leukocyte Esterase Small (1+) H (Negative) Urine RBC >20 H (0-2) /HPF Urine WBC 11-20 (0-5) /HPF Ur Squamous Epith Cells 3-5 (0-2) /HPF Calcium Oxalate Crystal Present Urine Bacteria 3+ (None Seen) Hyaline Casts 0-2 (0-2) /LPF 07/26/ Range/Units 18:28 WBC (4.8-10.8) X10*3/uL RBC (4.20-5.50) X10*6/uL Hgb (12.0-16.0) g/dl Hct (37.0-47.0) % MCV (80.0-98.0) fL MCH (27.0-33.0) pg MCHC (31.0-35.0) g/dl RDW (11.0-16.0) % Plt Count (160-400) X10*3/uL MPV (9.4-12.3) fL Immature Gran % (Auto) (0.0-0.4) % Neut % (Auto) (45-73) % Lymph % (Auto) (20-40) % [place] % (Auto) (2-11) % Eos % (Auto) (0-4) % Baso % (Auto) (0-2) % Lymph # (Auto) (1.2-4.9) X10*3/uL [place] # (Auto) (0.1-1.2) X10*3/uL Eos # (Auto) (0.0-0.4) X10*3/uL Baso # (Auto) (0.0-0.2) X10*3/uL Abs Immat Gran (auto) (0.00-0.03) X10*3/uL Absolute Neuts (auto) (2.0-8.3) x10*3/uL Absolute Nucleated RBC (0.0-0.012) X10*3/uL Nucleated RBC % (auto) (0.0-0.2) /100WBC Sodium (135-145) mmol/L Potassium (3.3-5.1) mmol/L Chloride (96-108) mmol/L Carbon Dioxide (22-29) mmol/L Anion Gap (12-20) BUN (9-16) mg/dL Creatinine (0.5-1.4) mg/dL Estim Creat Clear Calc Estimated GFR Random Glucose (60-115) mg/dL Lactic Acid 0.9 (0.5-2.0) mmol/L Calcium (8.4-10.2) mg/dL Total Bilirubin (0.0-1.0) mg/dL AST (5-31) U/L ALT (0-31) U/L Alkaline Phosphatase (39-117) U/L Total Protein (6.5-8.0) g/dL Albumin (3.5-5.0) g/dL Urine Color Urine Appearance Urine pH (5.0-9.0) Ur Specific [place] (1.005-1.025) Urine Protein (Neg-Trace) mg/dL Urine Glucose (UA) (Negative) mg/dL Urine Ketones (Negative) mg/dL Urine Blood (Negative) Urine Nitrite (Negative) Ur Leukocyte Esterase (Negative) Urine RBC (0-2) /HPF Urine WBC (0-5) /HPF Ur Squamous Epith Cells (0-2) /HPF Calcium Oxalate Crystal Urine Bacteria (None Seen) Hyaline Casts (0-2) /LPF <NATALIO Blue - Last Filed: 08/08/22 11:54> Lab Results 07/26/22 07/26/22 07/26/22 Range/Units 17:33 17:33 17:33 WBC 8.4 (4.8-10.8) X10*3/uL RBC 4.05 L (4.20-5.50) X10*6/uL Hgb 12.3 (12.0-16.0) g/dl Hct 37.7 (37.0-47.0) % MCV 93.1 (80.0-98.0) fL MCH 30.4 (27.0-33.0) pg MCHC 32.6 (31.0-35.0) g/dl RDW 13.7 (11.0-16.0) % Plt Count 308 (160-400) X10*3/uL MPV 8.8 L (9.4-12.3) fL Immature Gran % (Auto) 0.2 (0.0-0.4) % Neut % (Auto) 64.3 (45-73) % Lymph % (Auto) 27.6 (20-40) % [place] % (Auto) 4.8 (2-11) % Eos % (Auto) 2.6 (0-4) % Baso % (Auto) 0.5 (0-2) % Lymph # (Auto) 2.3 (1.2-4.9) X10*3/uL [place] # (Auto) 0.4 (0.1-1.2) X10*3/uL Eos # (Auto) 0.2 (0.0-0.4) X10*3/uL Baso # (Auto) 0.0 (0.0-0.2) X10*3/uL Abs Immat Gran (auto) 0.02 (0.00-0.03) X10*3/uL Absolute Neuts (auto) 5.4 (2.0-8.3) x10*3/uL Absolute Nucleated RBC 0.000 (0.0-0.012) X10*3/uL Nucleated RBC % (auto) 0.0 (0.0-0.2) /100WBC Sodium 141 (135-145) mmol/L Potassium 4.2 (3.3-5.1) mmol/L Chloride 111 H (96-108) mmol/L Carbon Dioxide 22 (22-29) mmol/L Anion Gap 12 (12-20) BUN 24 H (9-16) mg/dL Creatinine 1.12 (0.5-1.4) mg/dL Estim Creat Clear Calc 61.5 Estimated GFR 49 Random Glucose 98 (60-115) mg/dL Lactic Acid (0.5-2.0) mmol/L Calcium 9.1 (8.4-10.2) mg/dL Total Bilirubin 1.0 (0.0-1.0) mg/dL AST 12 (5-31) U/L ALT 10 (0-31) U/L Alkaline Phosphatase 48 (39-117) U/L Total Protein 6.2 L (6.5-8.0) g/dL Albumin 3.8 (3.5-5.0) g/dL Urine Color Other A Urine Appearance Cloudy Urine pH 6.5 (5.0-9.0) Ur Specific [place] 1.025 (1.005-1.025) Urine Protein 300 (3+) H (Neg-Trace) mg/dL Urine Glucose (UA) 250 H (Negative) mg/dL Urine Ketones Trace (Negative) mg/dL Urine Blood Large (3+) H (Negative) Urine Nitrite Positive H (Negative) Ur Leukocyte Esterase Small (1+) H (Negative) Urine RBC >20 H (0-2) /HPF Urine WBC 11-20 (0-5) /HPF Ur Squamous Epith Cells 3-5 (0-2) /HPF Calcium Oxalate Crystal Present Urine Bacteria 3+ (None Seen) Hyaline Casts 0-2 (0-2) /LPF 07/26/22 Range/Units 18:28 WBC (4.8-10.8) X10*3/uL RBC (4.20-5.50) X10*6/uL Hgb (12.0-16.0) g/dl Hct (37.0-47.0) % MCV (80.0-98.0) fL MCH (27.0-33.0) pg MCHC (31.0-35.0) g/dl RDW (11.0-16.0) % Plt Count (160-400) X10*3/uL MPV (9.4-12.3) fL Immature Gran % (Auto) (0.0-0.4) % Neut % (Auto) (45-73) % Lymph % (Auto) (20-40) % [place] % (Auto) (2-11) % Eos % (Auto) (0-4) % Baso % (Auto) (0-2) % Lymph # (Auto) (1.2-4.9) X10*3/uL [place] # (Auto) (0.1-1.2) X10*3/uL Eos # (Auto) (0.0-0.4) X10*3/uL Baso # (Auto) (0.0-0.2) X10*3/uL Abs Immat Gran (auto) (0.00-0.03) X10*3/uL Absolute Neuts (auto) (2.0-8.3) x10*3/uL Absolute Nucleated RBC (0.0-0.012) X10*3/uL Nucleated RBC % (auto) (0.0-0.2) /100WBC Sodium (135-145) mmol/L Potassium (3.3-5.1) mmol/L Chloride (96-108) mmol/L Carbon Dioxide (22-29) mmol/L Anion Gap (12-20) BUN (9-16) mg/dL Creatinine (0.5-1.4) mg/dL Estim Creat Clear Calc Estimated GFR Random Glucose (60-115) mg/dL Lactic Acid 0.9 (0.5-2.0) mmol/L Calcium (8.4-10.2) mg/dL Total Bilirubin (0.0-1.0) mg/dL AST (5-31) U/L ALT (0-31) U/L Alkaline Phosphatase (39-117) U/L Total Protein (6.5-8.0) g/dL Albumin (3.5-5.0) g/dL Urine Color Urine Appearance Urine pH (5.0-9.0) Ur Specific [place] (1.005-1.025) Urine Protein (Neg-Trace) mg/dL Urine Glucose (UA) (Negative) mg/dL Urine Ketones (Negative) mg/dL Urine Blood (Negative) Urine Nitrite (Negative) Ur Leukocyte Esterase (Negative) Urine RBC (0-2) /HPF Urine WBC (0-5) /HPF Ur Squamous Epith Cells (0-2) /HPF Calcium Oxalate Crystal Urine Bacteria (None Seen) Hyaline Casts (0-2) /LPF <NATALIO Kahn - Last Filed: 07/26/22 21:23> Independent Interpretation I performed an independent interpretation of an: CT Scan (CT/CT abdomen pelvis wo IV con IMPRESSION: 1. The previously seen obstructing distal right ureteral calculus is no longer present but there is increased right-sided hydronephrosis and dilatation of the ureter all the way down to the bladder. No calculi are seen along the course of the ureter or wit) <NATALIO Kahn - Last Filed: 07/26/22 21:23> Radiology Impression Discussion of test interpretation with radiology: I have reviewed the radiologist's reading. <NATALIO Kahn - Last Filed: 07/26/22 21:23> External Record Review External record reviewed: Inpatient record, Office record, Outpatient record, Prior outpatient labs, Prior outpatient radiology, Primary care record and Outside ED record <NATALIO Kahn - Last Filed: 07/26/22 21:23> Prescription Management I considered prescription management with: Pain Medication <NATALIO Kahn - Last Filed: 07/26/22 21:23> Core Measures AMI core measures followed: Yes <NATALIO Kahn - Last Filed: 07/26/22 21:23> Measure exclusions: not indicated <NATALIO Kahn - Last Filed: 07/26/22 21:23> Critical Care Time Critical Care Time Critical Care Time: Yes <NATALIO Kahn - Last Filed: 07/26/22 21:23> Total Critical Care Time: 35 <NATALIO Kahn - Last Filed: 07/26/22 21:23> Attestation: I attest to this time spent taking care of the patient, obtaining history, physical, reviewing labs, imaging, speaking to my attending, speaking to specialist. <NATALIO Kahn - Last Filed: 07/26/22 21:23> Discharge Plan Discharge Clinical Impression: UTI (urinary tract infection), Flank pain, Hydronephrosis <NATALIO Blue - Last Filed: 08/08/22 11:54> Patient Disposition: Home, Self-Care <NATALIO Blue - Last Filed: 08/08/22 11:54> Instructions: Urinary Tract Infection in Women (DC), Flank Pain (ED), Hydronephrosis (E D) <NATALIO Blue - Last Filed: 08/08/22 11:54> Additional Instructions: Take your medications as prescribed. If you were prescribed antibiotics today, it is important that you take your medication to their entirety, do not skip any doses, do not finish them early. Follow-up with your primary care provider this week. Please follow-up with Urology as soon as possible preferably within the next day or 3 Return to the emergency department with new or worsening symptoms. Such as fevers, chills, chest pain, shortness of breath, nausea, vomiting, dizziness, headache, vision changes, lethargy In case of emergency call 911 Toradol has been sent to your pharmacy, you tolerated this well in the department. Please take this as prescribed do not take this with ibuprofen, or other NSAIDs, do not mix this with alcohol. Side effects of this medication including increased risk for bleeding and possible kidney injury. A narcotic has been sent to your pharmacy please take this as prescribed. Do not take more than the prescribed dose. Narcotic medications can cause addiction. Please do not mix them with alcohol. Do not take them while driving or operating machinery. Do not take them with any other narcotics. Do not share them with friends or family. They can cause constipation. Take them only for severe pain. CT/CT abdomen pelvis wo IV con IMPRESSION: 1.? The previously seen obstructing distal right ureteral calculus is no longer present but there is increased right-sided hydronephrosis and dilatation of the ureter all the way down to the bladder. No calculi are seen along the course of the ureter or within the bladder, which is thick-walled and contains air. 2.? Incidental note made of cholelithiasis, benign hepatic cyst and degenerative changes in the spine with grade 1 retrolisthesis of L2 upon L3. ? <NATLAIO Blue Last Filed: 08/08/22 11:54> Prescriptions: New ketorolac 10 mg tablet 10 mg PO TID PRN (Reason: pain) 5 Days Qty: 15 0RF morphine 15 mg tablet 15 mg PO Q6H PRN (Reason: pain) 5 Days Qty: 10 0RF Rx Instructions: Partial Fill upon patient request. levofloxacin 500 mg tablet 500 mg PO DAILY 7 Days Qty: 7 0RF No Action duloxetine 20 mg capsule,delayed release(DR/EC) 20 mg PO DAILY <NATALIO Blue - Last Filed: 08/08/22 11:54> Referrals: [facility] [place] Urology Services [Provider Group] - 1 day Armando Nagel MD [Primary Care Provider] - 2 days <NATALIO Blue - Last Filed: 08/08/22 11:54> Stand Alone Forms: Work/School Release <NATALIO Blue - Last Filed: 08/08/22 11:54> Interventions: ED Discharge Assessment Last Done: 07/26/22 21:47 <NATALIO Blue - Last Filed: 08/08/22 11:54> Discharge Date/Time: 07/26/22 21:47 <NATALIO Blue - Last Filed: 08/08/22 11:54>
[2022-07-26 17:37] LABS: MANUAL DIFF FLAG NO
[2022-07-26 17:39] LABS: Basophils Percent Auto 0.5 % (0-2); Eosinophils Absolute Auto 0.2 X10*3/uL (0.0-0.4); Eosinophils Percent Auto 2.6 % (0-4); Hematocrit 37.7 % (37.0-47.0); Hemoglobin 12.3 g/dl (12.0-16.0); Imm Gran Abs Auto 0.02 X10*3/uL (0.00-0.03); Imm Gran Pct Auto 0.2 % (0.0-0.4); Lymphocytes Absolute Auto 2.3 X10*3/uL (1.2-4.9); Lymphocytes Percent Auto 27.6 % (20-40); Mean Corpuscular HGB Conc 32.6 g/dl (31.0-35.0); Mean Corpuscular Hemoglobin 30.4 pg (27.0-33.0); Mean Corpuscular Volume 93.1 fL (80.0-98.0); Mean Platelet Volume 8.8 fL (9.4-12.3); Monocytes Absolute Auto 0.4 X10*3/uL (0.1-1.2); Monocytes Percent Auto 4.8 % (2-11); Neutrophils Absolute Auto 5.4 x10*3/uL (2.0-8.3); Neutrophils Percent Auto 64.3 % (45-73); Platelet Count 308 X10*3/uL (160-400); Red Blood Count 4.05 X10*6/uL (4.20-5.50); Red Cell Distribution Width 13.7 % (11.0-16.0); White Blood Count 8.4 X10*3/uL (4.8-10.8)
[2022-07-26 17:48] LABS: Appearance Urine Cloudy; Color Urine Other; Glucose Urine UA 250 mg/dL (Negative); Leukocyte Esterase Urine Small (1+) (Negative); Nitrite Urine Positive (Negative); PH 6.5 (5.0-9.0); Specific Gravity - Urine 1.025 (1.005-1.025); UMIC TRIGGER UACC YES; Urine Blood Large (3+) (Negative); Urine Ketones Trace mg/dL (Negative); Urine Protein 300 (3+) mg/dL (Neg-Trace)
[2022-07-26 17:59] LABS: Alanine Aminotransferase 10 U/L (0-31); Albumin Level 3.8 g/dL (3.5-5.0); Alkaline Phosphatase 48 U/L (39-117); Anion Gap 12 (12-20); Aspartate Amino Transferase 12 U/L (5-31); Blood Urea Nitrogen 24 mg/dL (9-16); Calcium 9.1 mg/dL (8.4-10.2); Carbon Dioxide 22 mmol/L (22-29); Chloride 111 mmol/L (96-108); Creatinine Clr Calc Pharmacy 61.5; Estimated Glomerular Filt Rate 49; Glucose Random 98 mg/dL (60-115); Potassium 4.2 mmol/L (3.3-5.1); Sodium 141 mmol/L (135-145); Total Protein 6.2 g/dL (6.5-8.0)
[2022-07-26 18:00] VITALS: BP 123/65; PULSE 78; RESP 14; O2SAT 98
[2022-07-26 18:11] LABS: Bacteria Urine 3+ (None Seen); Calcium Oxalate Crystals Urine Present; Hyaline Casts Urine 0-2 /LPF (0-2); RBC Urine >20 /HPF (0-2); UACC Culture Trigger YES
[2022-07-26] MEDS: cefTRIAXone sodium 1 GM in 0.9 % Sodium Chloride 50 ML IV (18:51)
[2022-07-26 18:54] LABS: Lactic Acid 0.9 mmol/L (0.5-2.0)
[2022-07-26] MEDS: Morphine Sulfate 4 MG/ML CARTRIDGE IVPUSH (19:14)
[2022-07-26] MEDS: Ketorolac Tromethamine 15 MG/ML VIAL 30 MG IM (20:28)
[2022-07-26] MEDS: 0.9 % Sodium Chloride 1,000 ML 999 ML IV (20:29)
[2022-07-26 20:54] VITALS: BP 105/42; PULSE 57; RESP 16; TEMP 36.4; O2SAT 99
== END 2022-07-26 21:47 | disposition home or self-care (01) ==
PROVIDERS: Physician Assistant; Emergency Provider Emergency Medicine Emergency Medical Services; PCP Internal Medicine
DX: N39.0 Urinary tract infection, site not specified (principal); R33.9 Retention of urine, unspecified; R30.0 Dysuria; Z79.899 Other long term (current) drug therapy
CPT/HCPCS: 36415; 51798; 74176; 80053; 81001; 83605; 85025; 87040; 87086; 96361; 96365; 96372; 96375; 99284; 99285; J0696; J1885; J2270